=== PATIENT | male | born 1945 | race Caucasian/White ===

== ENCOUNTER 2018-08-16 07:49 | Day surgery (SDC) | payer MEDICARE ==
[2018-08-16] VITALS (8 sets, daily range): BP systolic 127–146; BP diastolic 57–81
[~2018-08-16] VITALS: Ht 190.5 cm; Wt 121.2 kg
[2018-08-16] MEDS ORDERED: diphenhydrAMINE 25mg capsule PO PRN (08:10)
[2018-08-16] MEDS ORDERED: sod bicarbonate 150mEq in D5W 1,150 ML IV ONE (08:10)
[2018-08-16] MEDS ORDERED: ALLO100T PO (08:22)
[2018-08-16] MEDS ORDERED: AMLO10TA PO (08:24)
[2018-08-16] MEDS ORDERED: LISI40TA4 PO (08:25)
[2018-08-16] MEDS ORDERED: VITAMIN (08:28)
[2018-08-16] MEDS ORDERED: INDO50CA14 PO (08:30)
[2018-08-16] MEDS ORDERED: APIX5TAB3 PO (08:31)
[2018-08-16] MEDS ORDERED: FLUT1AER INH (08:32)
[2018-08-16] MEDS ORDERED: ALBU18HF2 INH (08:33)
[2018-08-16] MEDS ORDERED: OMEG1CAP2 PO (08:34)
[2018-08-16] MEDS ORDERED: GLUC-133 PO (08:37)
[2018-08-16] MEDS ORDERED: ATOR10TA87 PO (08:38)
[2018-08-16] MEDS ORDERED: CHLO25TA2 PO (08:39)
[2018-08-16] MEDS ORDERED: fentaNYL/PF 50MCG/1 ML 2ML syringe ONE (09:11)
[2018-08-16] MEDS ORDERED: midazolam 2 mg/2 ml injection ONE (09:11)
[2018-08-16] MEDS ORDERED: LIDOcaine 1% (10mg/ml)w/preservative injection 20ml MDV ONE (09:11)
[2018-08-16] MEDS ORDERED: iohexol 350MG/ML 100ml bottle IV ONE (09:12)
[2018-08-16] MEDS ORDERED: iohexol 350 MG/ML 50ML vial IV ONE (09:12)
[2018-08-16 09:18] LABS: BASOPHILS # (AUTO) 0.1 X10'3 (0-0.2); BASOPHILS % (AUTO) 1.5 % (0-1); EOSINOPHILS # (AUTO) 0.2 X10'3 (0-0.9); EOSINOPHILS % (AUTO) 2.3 % (0-6); HEMATOCRIT 43.9 % (42.0-52.0); HEMOGLOBIN 14.6 g/dl (14.0-17.9); LYMPHOCYTES # (AUTO) 1.8 X10'3 (1.1-4.8); LYMPHOCYTES % (AUTO) 22.8 % (21-51); MEAN CORPUSCULAR HEMOGLOBIN 31.8 PG (27.0-31.0); MEAN CORPUSCULAR HGB CONC 33.4 % (33.0-36.5); MEAN CORPUSCULAR VOLUME 95.3 FL (78-98); MEAN PLATELET VOLUME 9.5 FL (7.4-10.4); MONOCYTES # (AUTO) 0.6 X10'3 (0-0.9); NEUTROPHILS # (AUTO) 5.2 X10'3 (1.8-7.7); NEUTROPHILS % (AUTO) 65.4 % (42-75); PLATELET COUNT 233 X10'3 (140-440); RED CELL DISTRIBUTION WIDTH 14.4 % (11.5-14.5); WHITE BLOOD COUNT 7.9 X10'3 (4.5-11.0)
[2018-08-16 09:22] LABS: PARTIAL THROMBOPLASTIN TIME 28 SECONDS (22-32); PROTHROMBIN TIME 10.5 SECONDS (9.0-12.0)
[2018-08-16 09:26] LABS: ALBUMIN 3.6 G/DL (3.4-5.0); ANION GAP 13 (8-16); BLOOD UREA NITROGEN 12 MG/DL (7-18); BUN/CREATININE RATIO 13.6 (5.4-32.0); CALCIUM 9.5 MG/DL (8.5-10.1); CHLORIDE 101 MMOL/L (99-107); CREATININE 0.88 MG/DL (0.60-1.10); GLUCOSE 175 MG/DL (70-104); MAGNESIUM 1.7 MG/DL (1.5-2.4); POTASSIUM 3.1 MMOL/L (3.5-5.1); SODIUM 140 MMOL/L (135-145); eGFR 85 ML/MIN
--- NOTE | 2018-08-16 09:39 | NUR ---
REQUESTING NEW ORDER FROM TO REPLACE PT POTASSIUM PER RECENT LAB DRAW. SPOKE WITH JOSE DAVID IN [employer]. WAITING FOR RESPONSE. PT IN [employer] AT THIS TIME.
[2018-08-16] MEDS ORDERED: potassium Cl 20 mEq SR tablet PO PRN (10:25)
--- NOTE | 2018-08-16 11:45 | NUR ---
pt ate turkey sandwich.
== END 2018-08-16 13:30 | disposition home or self-care (01) ==
LOC: SSTAY O 07:49
PROVIDERS: ATTEND Internal Medicine Cardiovascular Disease
DX: I20.8 Other forms of angina pectoris (principal); I10 Essential (primary) hypertension; E78.5 Hyperlipidemia, unspecified; E11.9 Type 2 diabetes mellitus without complications; I48.2 Chronic atrial fibrillation; I25.2 Old myocardial infarction; J44.9 Chronic obstructive pulmonary disease, unspecified; M10.9 Gout, unspecified; Z96.653 Presence of artificial knee joint, bilateral; Z79.01 Long term (current) use of anticoagulants; Z79.899 Other long term (current) drug therapy; Z98.890 Other specified postprocedural states
CPT/HCPCS: 36415; 80048; 82948; 83735; 85025; 85610; 85730; 93005; 93458; 99152; A6257; C1760; J1644; J2001; J2250; J3010; Q0163; Q9967; A4620; C1769; C1894